=== PATIENT | female | born 1980 | race Caucasian/White ===

== ENCOUNTER 2016-12-02 00:09 | Emergency (ER) | payer SELFPAY ==
[~2016-12-02] VITALS: Ht 160 cm; Wt 95.3 kg
[2016-12-02 00:52] LABS: OBC FLU VALID
[2016-12-02] MEDS ORDERED: ONDANSETRON PF 4 MG/2 ML VIAL. IV ONE (01:00)
[2016-12-02] MEDS ORDERED: ACETAMINOPHEN 500 MG TABLET PO ONE (01:00)
[2016-12-02] MEDS ORDERED: FENTANYL PF 100 MCG/2 ML VIAL. IV ONE (01:00)
[2016-12-02] MEDS ORDERED: IV NORMAL SALINE 1000ML BAG 1,000 ML IV SCH (01:00)
[2016-12-02 01:25] VITALS: BP 96/55
[2016-12-02] MEDS ORDERED: HYDR-2666 PO (01:33)
--- NOTE | 2016-12-02 01:34 | PHYS DOC ---
Past Medical History Past Medical History: Diverticulitis, Other Past Surgical History: Hysterectomy Additional Information: 1 PPD Alcohol Use: Occasionally Drug Use: None Adult General Chief Complaint Chief Complaint: SHORTNESS OF BREATH HPI HPI Patient is a 36 year old female who presents with 3 days of cough, dyspnea, myalgia, fever and chills, sore throat, and central chest pain with cough. She is intermittent clear sputum production. She denies hemoptysis, leg pain or swelling, abdominal pain, vomiting, diarrhea, dysuria, sick contacts. She did not get flu shot this season. She has been taking ibuprofen and Tylenol without great improvement of symptoms. Review of Systems Review of Systems Constitutional: Has fever and chills [] Eyes: Denies change in visual acuity, redness, or eye pain [] HENT: Denies nasal congestion [] Respiratory: Has cough and shortness of breath [] Cardiovascular: No additional information not addressed in HPI [] GI: Denies abdominal pain, vomiting, bloody stools or diarrhea [] : Denies dysuria or hematuria [] Musculoskeletal: Denies back pain or joint pain [] Integument: Denies rash or skin lesions [] Neurologic: Denies headache, focal weakness or sensory changes [] Endocrine: Denies polyuria or polydipsia [] Current Medications Current Medications Current Medications Medications (Trade) Dose Ordered Sig/Anisa Start Time Stop Time Status Last Admin Dose Admin Acetaminophen (Tylenol) 500 mg 1X ONCE 12/02/16 01:00 12/02/16 01:01 DC 12/02/16 00:46 500 MG Fentanyl Citrate (Fentanyl 2ml Vial) 50 mcg 1X ONCE 12/02/16 01:00 12/02/16 01:01 DC 12/02/16 00:43 50 MCG Ondansetron HCl (Zofran) 4 mg 1X ONCE 12/02/16 01:00 12/02/16 01:01 DC 12/02/16 00:46 4 MG Sodium Chloride (Iv Sodium Chloride 0.9% 1000ml Bag) 1,000 ml @ 1,000 mls/hr Q1H 12/02/16 01:00 12/02/16 01:45 DC 12/02/16 00:46 1,000 MLS/HR Allergies Allergies Allergies Coded Allergies Type Severity Reaction Last Updated Verified No Known Drug Allergies 12/02/16 No Physical Exam Physical Exam Constitutional: Well developed, well nourished, no acute distress, non-toxic appearance. [] HENT: Normocephalic, atraumatic, bilateral external ears normal, oropharynx moist, no oral exudates, nose normal. [] Eyes: PERRLA, EOMI. [] Neck: Normal range of motion, supple, no stridor. [] Cardiovascular:Heart rate regular rhythm [] Lungs & Thorax: Bilateral breath sounds clear to auscultation [] Abdomen: Bowel sounds normal, soft, no tenderness. [] Skin: Warm, dry, no erythema, no rash. [] Back: No tenderness, no CVA tenderness. [] Extremities: No tenderness, ROM intact, no edema. [] Neurologic: Alert and oriented X 3, normal motor function, normal sensory function, no focal deficits noted. [] Psychologic: Affect normal, judgement normal, mood normal. [] Current Patient Data Vital Signs Vital Signs Date Time Temp Pulse Resp B/P Pulse Ox O2 Delivery O2 Flow Rate FiO2 12/02/16 01:25 94 2 96/55 93 12/02/16 00:30 102.8 Room Air 102.8 Lab Values Laboratory Tests Test 12/02/16 00:17 Influenza Type A Antigen Positive (NEGATIVE) Influenza Type B Antigen Negative (NEGATIVE) EKG EKG EKG as interpreted by me as normal sinus rhythm, rate 98, no ST-T changes, normal intervals, no ectopy Radiology/Procedures Radiology/Procedures Chest xray as interpreted by me with no acute cardiopulmonary disease process Course & Med Decision Making Course & Med Decision Making Pertinent Labs and Imaging studies reviewed. (See chart for details) She feels better after medications. Workup is remarkable for influenza being positive. Discussed symptomatic management. Smoking cessation discussed. Return precautions given. She understands and agrees with plan. Dragon Disclaimer Dragon Disclaimer This electronic medical record was generated, in whole or in part, using a voice recognition dictation system. Departure Departure Impression: Primary Impression: Influenza A Disposition: HOME, SELF-CARE Condition: STABLE Referrals: NO PCP (PCP) Patient Instructions: Influenza, Adult, [id number] Additional Instructions: Take Tylenol or ibuprofen as needed for moderate pain. Take hydrocodone as needed for severe pain. Do not drink, drive or operate heavy machinery after taking hydrocodone as it may make sleepy. Follow-up with your primary care doctor. Return for any concerns. Scripts Hydrocodone Bit/Acetaminophen (Hydrocodone-Apap 5-325 )1 Each Tablet1-2 Tab PO PRN Q4-6HRS PRN PAIN #14 TAB Prov:Edu GRIFFITHS MD 12/02/16 Edu GRIFFITHS MD Dec 02, 2016 01:34
--- NOTE | 2016-12-02 06:32 | EKG ---
[facility] [address] [place] [id number] Test Date: 2016-12-02 Test Time: 00:18:02 Pat Name: JANES GUADALUPE Department: Room: Gender: F Director Of Math: : 1980 Requested By: Edu GRIFFITHS Order Number: [id number] Reading MD: Masha Alexis Measurements Intervals [place] Rate: 98 P: -15 DC: 182 QRS: 40 QRSD: 96 T: 17 QT: 354 QTc: 454 Interpretive Statements SINUS RHYTHM NORMAL ECG RI6.01 No previous ECG available for comparison Electronically Signed On 12-05-2016 8:33:37 [employer] by Masha Alexis
--- NOTE | 2016-12-02 07:39 | RAD ---
Indication cough. Shortness of breath. PA and lateral views of the chest were obtained and are compared to an exam 07/15/2010. The heart and pulmonary vessels appear normal. There is perhaps a very minimal patchy infiltrate in the left lower lobe. There is no pleural fluid or pneumothorax. Visualized bony structures appear grossly intact. IMPRESSION: Possible minimal patchy infiltrate in the lower left lower lobe. The finding is not certain
== END 2016-12-02 01:45 | disposition home or self-care (01) ==
LOC: ER 00:09
DX: J09.X2 Influenza due to identified novel influenza A virus with other respiratory manifestations (principal); F17.200 Nicotine dependence, unspecified, uncomplicated; J02.9 Acute pharyngitis, unspecified; R07.89 Other chest pain
CPT/HCPCS: 71020; 87804; 93005; 96361; 96374; 96375; 99285; J2405; J3010; J7030